=== PATIENT | female | born 1985 | race Asian ===

== ENCOUNTER 2016-09-24 18:08 | Emergency (ER) | payer MEDICAID ==
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
[2016-09-24] MEDS ORDERED: LIDOCAINE 1% INJ-PF (10 MG/ML) 30 ML SDV INJ ONE (21:11)
[2016-09-24] MEDS ORDERED: DIPH/PERTUSS(ACELL)/TETANUS VAC/PF 0.5 ML SYR (>=10YO) IM ONE (22:26)
[2016-09-24] MEDS ORDERED: IBUPROFEN 800 MG TABLET PO ONE (22:29)
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
[2016-09-24 22:49] VITALS: BP 118/80
== END 2016-09-24 22:50 | disposition home or self-care (01) ==
LOC: ER 18:08
PROC: 0HQ1XZZ Repair Face Skin, External Approach (ICD-10-PCS; principal; 2016-09-24)
DX: S01.81XA Laceration without foreign body of other part of head, initial encounter (principal); Y04.0XXA Assault by unarmed brawl or fight, initial encounter; Y99.0 Civilian activity done for income or pay; Z88.6 Allergy status to analgesic agent; Z23 Encounter for immunization
CPT/HCPCS: 99284; 90471; 90715; 12014; J3490